=== PATIENT | female | born 1935 | race Hispanic/Latino ===

== ENCOUNTER 2018-01-29 18:52 | Inpatient (IN) | payer MEDICARE ==
[~2018-01-29] VITALS: Ht 160 cm; Wt 64.2 kg
[~2018-01-29 18:52] MED LIST: ACIPHEX; CICLOPIROX15 GM TOP; DESONIDE15 G1 TOP; DIOVAN; ERYTHROMYCIN500 MG PO; FUROSEMIDE; HYDROCODON-ACE1 EA12 PO; METOPROLOL; METOPROLOL SUCC50 MG PO; MOVIPREP POWDE1 EACH PO; MULTIVITAMINS1 EAC8 PO; NASONEX; NEOMYCIN SULFA500 MG PO; NEXIUM40 MG PO; OMEPRAZOLE; PURELAX; Z.0.RANITIDINE HCL30; [UNRECOGNIZED DRUG - OTHER]
[2018-01-29 20:34] LABS: CLARITY,URINE HAZY (CLEAR); COLOR,URINE YELLOW (YELLOW)
[2018-01-29 20:35] LABS: LEUKOCYTE ESTERASE ,URINE 1+ (NEGATIVE); NITRITE,URINE NEGATIVE (NEGATIVE); PROTEIN,URINE DIPSTICK NEGATIVE (NEGATIVE); URINE UROBILINOGEN 0.2 mg/dL (0.2 - 1)
[2018-01-29 20:36] LABS: BILIRUBIN,URINE NEGATIVE (NEGATIVE); KETONES,URINE TRACE (NEGATIVE)
[2018-01-29 21:46] LABS: EPITHELIAL CELLS,URINE MANY /LPF
[2018-01-29 21:50] LABS: BACTERIA,URINE RARE /HPF
[2018-01-29 22:04] LABS: BASOPHILS # (AUTO) 0.1 (0.0-0.1); BASOPHILS % 0.5 % (0.0-1.0); EOSINOPHILS # (AUTO) 0.1 (0.0-0.4); EOSINOPHILS % 1.1 % (0.0-6.0); HEMATOCRIT 36.6 % (34.2-44.1); LYMPHOCYTES # (AUTO) 1.4 (1.0-3.2); LYMPHOCYTES % 12.8 % (18.0-39.1); MEAN CORPUSCULAR HEMOGLOBIN 29.9 pg (28-32); MEAN CORPUSCULAR HGB CONC 32.8 g/dL (31-35); MEAN CORPUSCULAR VOLUME 91.3 fL (81-99); MONOCYTES # (AUTO) 0.9 (0.2-0.8); MONOCYTES % 8.3 % (4.4-11.3); NEUTROPHILS # (AUTO) 8.5 (2.1-6.9); NEUTROPHILS % 76.9 % (38.7-80.0); PLATELET COUNT 270 x10e3/uL (140-360); RED BLOOD COUNT 4.01 x10e6/uL (3.6-5.1); RED CELL DISTRIBUTION WIDTH 12.8 % (11.7-14.4)
[2018-01-29 22:30] LABS: ALANINE AMINOTRANSFERASE 18 IU/L (0-55); ALBUMIN 3.8 g/dL (3.5-5.0); ALBUMIN/GLOBULIN RATIO 1.1 (0.8-2.0); ALKALINE PHOSPHATASE 116 IU/L (40-150); AMYLASE 58 U/L (25-125); ANION GAP 14.9 mmol/L (8-16); BLOOD UREA NITROGEN 10 mg/dL (7-26); BUN/CREATININE RATIO 14 (6-25); CALCIUM 9.4 mg/dL (8.4-10.2); CARBON DIOXIDE 25 mmol/L (22-29); CHLORIDE 104 mmol/L (98-107); EST GLOMERULAR FILTRATION RATE > 60 ML/MIN (60-); GLUCOSE 97 mg/dL (74-118); LIPASE 40 U/L (8-78); POTASSIUM 3.9 mmol/L (3.5-5.1); SODIUM 140 mmol/L (136-145)
[2018-01-29] MEDS ORDERED: MORPHINE SULFATE 2 MG/ML SYR IV PRN (23:30)
[2018-01-29] MEDS: SODIUM CHLORIDE 0.9% 1000ML 1,000 ML IV SCH (23:31)
[2018-01-29] MEDS: LEVOFLOXACIN 500MG/D5W 100ML IV SCH (23:39)
[2018-01-29] MEDS: METRONIDAZOLE 500MG/NS 100ML IV SCH (23:42)
[2018-01-30] VITALS (8 sets, daily range): BP systolic 122–134; BP diastolic 52–63
[2018-01-30] MEDS: LEVOFLOXACIN 500MG/D5W 100ML IV SCH ×2 (00:14→02:21)
[2018-01-30] MEDS ORDERED: NORVASC5 MG PO (00:22)
[2018-01-30] MEDS: METRONIDAZOLE 500MG/NS 100ML IV SCH ×3 (05:05→18:11)
[2018-01-30 05:17] LABS: BASOPHILS # (AUTO) 0.1 (0.0-0.1); BASOPHILS % 0.6 % (0.0-1.0); EOSINOPHILS # (AUTO) 0.1 (0.0-0.4); EOSINOPHILS % 1.7 % (0.0-6.0); HEMATOCRIT 34.1 % (34.2-44.1); HEMOGLOBIN 11.1 g/dL (12.0-16.0); LYMPHOCYTES # (AUTO) 1.2 (1.0-3.2); LYMPHOCYTES % 15.5 % (18.0-39.1); MEAN CORPUSCULAR HEMOGLOBIN 29.6 pg (28-32); MEAN CORPUSCULAR HGB CONC 32.6 g/dL (31-35); MEAN CORPUSCULAR VOLUME 90.9 fL (81-99); MONOCYTES # (AUTO) 0.6 (0.2-0.8); MONOCYTES % 8.1 % (4.4-11.3); NEUTROPHILS # (AUTO) 5.7 (2.1-6.9); NEUTROPHILS % 73.7 % (38.7-80.0); PLATELET COUNT 246 x10e3/uL (140-360); RED BLOOD COUNT 3.75 x10e6/uL (3.6-5.1)
[2018-01-30 05:43] LABS: ALANINE AMINOTRANSFERASE 12 IU/L (0-55); ALBUMIN 3.3 g/dL (3.5-5.0); ALBUMIN/GLOBULIN RATIO 1.1 (0.8-2.0); ALKALINE PHOSPHATASE 99 IU/L (40-150); ANION GAP 14.4 mmol/L (8-16); BLOOD UREA NITROGEN 10 mg/dL (7-26); BUN/CREATININE RATIO 18 (6-25); CALCIUM 8.6 mg/dL (8.4-10.2); CARBON DIOXIDE 21 mmol/L (22-29); CHLORIDE 107 mmol/L (98-107); CREATININE, SERUM 0.57 mg/dL (0.57-1.11); EST GLOMERULAR FILTRATION RATE > 60 ML/MIN (60-); GLUCOSE 85 mg/dL (74-118); POTASSIUM 3.4 mmol/L (3.5-5.1); SODIUM 139 mmol/L (136-145)
[2018-01-30] MEDS: SODIUM CHLORIDE 0.9% 1000ML 1,000 ML IV SCH ×3 (07:21→23:21)
[2018-01-30] MEDS: ONDANSETRON HCL INJ 2 MG/ML VIAL IV PRN (07:58)
[2018-01-30] MEDS: PANTOPRAZOLE 40 MG 10ML VIAL IV SCH (07:58)
--- NOTE | 2018-01-30 09:23 | History and Physical ---
PRIMARY CARE PHYSICIAN: Vinod Nicolas MD CANDY PULLER: Dr. Benavides CHIEF COMPLAINT: Rectal bleeding. HISTORY OF PRESENT ILLNESS: This is an 82-year-old woman with a history of colonic polyp and hemorrhoids, who underwent hemorrhoidectomy in the past, now developing rectal bleeding, prompting a visit to the hospital. She also had associated epigastric pain. Denies any history of rectal bleeding. She is admitted for further evaluation and management. Imaging showed some thickening at the ileum. The patient also had some nausea and chills. PAST MEDICAL HISTORY: Hypertension, GERD, constipation, hemorrhoids status post hemorrhoidectomy, colonic polyp status post resection. PAST SURGICAL HISTORY: Colonic polyp with polypectomy, cataract surgery, hemorrhoidectomy. ALLERGIES: PER ELECTRONIC MEDICAL RECORD. FAMILY/SOCIAL HISTORY: The patient is . She has 4 children. No alcohol, illicits or cigarettes. MEDICATIONS: Per electronic medical record. REVIEW OF SYSTEMS: Denies any dizziness, chest pain, shortness of breath, fever, chills, sweats, back pain, headache, blurred vision. PHYSICAL EXAMINATION VITAL SIGNS: Have been reviewed. GENERAL: A tired-appearing woman resting in bed. HEENT: Anicteric. Pupils are responsive to light. No oral lesions. CARDIOVASCULAR: Normal S1 and S2. LUNGS: Moderate breath sounds. ABDOMEN: Soft, nondistended. She has tenderness in the epigastric region. Negative Matamoros sign. No tenderness in the right or left mid or lower abdomen. EXTREMITIES: She has trace edema. SKIN: Dry. PSYCHIATRIC: Flat affect. NEUROLOGIC: Alert and oriented times 3, moving all extremities. LABS: Reviewed. MEDICATIONS: Reviewed. ASSESSMENT: An 82-year-old woman. 1. Rectal bleeding. 2. Ileitis/thickening at the ileum. 3. Gastroesophageal reflux disease. 4. Hypokalemia. 5. Urinary tract infection. 6. Gallbladder dyskinesia. 7. Hypertension. 8. Normocytic anemia. PLAN 1. N.P.O. status. 2. IV fluids. 3. Continue Flagyl and Levaquin. 4. Consult continuous absorption process operator, Dr. Benavides. 5. Continue IV PPI. 6. Anemia is only mild, will follow. 7. Now developing some symptoms in the lower chest. There were some findings on the CT scan imaging of the esophagus. Defer to GI service. 8. Continue to monitor closely. 9. Use SCD and PPI for prophylaxis. Job#: [id number] MH
[2018-01-30] MEDS ORDERED: MORPHINE SULFATE INJ 4 MG/ML INJ IV PRN (12:15)
[2018-01-30] MEDS ORDERED: POLYETHYLENE GLYCOL 3350 17 GM PACK PO PRN (18:45)
[2018-01-30] MEDS ORDERED: DOCUSATE SODIUM 100 MG CAP PO PRN (18:45)
[2018-01-30] MEDS ORDERED: DICYCLOMINE HCL 10 MG CAP PO PRN (18:45)
--- NOTE | 2018-01-30 20:03 | Consultation ---
DATE OF CONSULTATION: January 30, 2018 GASTROENTEROLOGY CONSULTATION REFERRING PHYSICIAN: Dr. Lopez. REASON FOR CONSULTATION: Is abdominal pain. HISTORY OF PRESENT ILLNESS: Mrs. Krause is a very pleasant 82-year-old woman who follows with my colleague, Dr. Benavides. She comes in with abdominal pain and diarrhea. She has crampy lower abdominal pain that started one day ago. There was blood in it mixed in with stool. She was seen by her primary care physician, Dr. Nicolas, and an outpatient CAT scan showed segmental colitis. The bleeding has now stopped, but she has tenesmus. There is also abnormality of the ileum which probably correlates with her previous partial colectomy and ileocolonic anastomosis. There is apparently also on abnormality of the esophagus. Her last upper and lower endoscopy with Dr. Benavides 3 years ago. She is due for a colonoscopy routinely. PAST MEDICAL HISTORY: 1. Hypertension. 2. GERD. 3. Constipation. 4. Hemorrhoids, status post hemorrhoidectomy. 5. Significant colonic polyps requiring surgical resection and ileocolonic anastomosis. 6. Cataract surgery. MEDICATIONS AND ALLERGIES: Reviewed. Please MAR medication reconciliation form. SOCIAL HISTORY: She is . She has good family support with her 4 children. She does not use any alcohol, tobacco or illicit substance. She is quite independent. REVIEW OF SYSTEMS: Twelve system review is positive for that mentioned in history of present illness as well as lower extremity swelling above baseline. PHYSICAL EXAMINATION: GENERAL: She is pleasant, alert, oriented, in no acute distress. HEENT: Pupils are equal, round, and reactive to light. NECK: Supple. LUNGS: Clear. CARDIOVASCULAR: S1 and S2. ABDOMEN: Soft. Tender in the lower abdomen with no rebound, guarding or masses. EXTREMITIES: No cyanosis, clubbing or edema. PSYCHIATRIC: Calm and cooperative. NEUROLOGIC: Nonfocal. HEME/ONC: No bruising or adenopathy. MUSCULOSKELETAL: Reasonable muscle mass for age, no significant deformity. Electronic health record reviewed for laboratory and radiologic studies as well as history including outpatient records. ASSESSMENT AND PLAN: At the current time, she is improving. Believe she had a colitis or diverticulitis, likely infectious versus ischemic. She also had nausea and vomiting which have resolved. She continues to have some tenesmus, but no bleeding. At the current time would continue with anti-reflux measures and PPI. Continue with antibiotics for 14 days. If she improves well and is tolerating diet then she could go home and follow up with Dr. Benavides for outpatient EGD and colonoscopy. Will continue to follow with you. Thank you very much for asking me to see Mrs. Krause. I discussed plan of care with the patient and her son over the phone. Please call if any questions or concerns. Job#: [id number]
[2018-01-31] MEDS: METRONIDAZOLE 500MG/NS 100ML IV SCH ×2 (00:45→06:10)
[2018-01-31 00:57] VITALS: BP 111/57
[2018-01-31 04:40] VITALS: BP 128/58
[2018-01-31] MEDS: ONDANSETRON HCL INJ 2 MG/ML VIAL IV PRN (07:43)
[2018-01-31] MEDS: PANTOPRAZOLE 40 MG 10ML VIAL IV SCH (07:43)
[2018-01-31 07:45] VITALS: BP 128/58
[2018-01-31] MEDS ORDERED: FLAGYL500 MG PO (07:51)
[2018-01-31] MEDS ORDERED: COLACE100 M1 PO (07:51)
[2018-01-31] MEDS ORDERED: LEVAQUIN500 MG PO (07:51)
[2018-01-31] MEDS ORDERED: DICYCLOMINE HCL10 MG PO (07:51)
[2018-01-31] MEDS ORDERED: MIRALAX17 GM PO (07:51)
[2018-01-31] MEDS ORDERED: ZOFRAN ODT4 MG PO (07:51)
[2018-01-31 09:18] VITALS: BP 141/64
[2018-01-31] MEDS ORDERED: PANTOPRAZOLE SO40 MG PO (09:35)
== END 2018-01-31 10:25 | disposition home or self-care (01) | DRG 392 ==
LOC: ER 18:52 → ERHOLD 23:40 → MED/SURG2 23:54
PROVIDERS: ADMIT Internal Medicine; ATTEND Internal Medicine
DX: A09 Infectious gastroenteritis and colitis, unspecified (principal); N39.0 Urinary tract infection, site not specified; Z86.010 Personal history of colon polyps; K21.9 Gastro-esophageal reflux disease without esophagitis; E87.6 Hypokalemia; G24.9 Dystonia, unspecified; D64.9 Anemia, unspecified
CPT/HCPCS: 36415; 80053; 81001; 82150; 83690; 85025; 86850; 86900; 87040; 87086; 93005; 99284; J1956; J2405; J7030

== ENCOUNTER → 2018-03-19 | Day surgery (SDC) | payer MEDICARE, OTHER ==
[2018-03-18 13:32] LABS: BASOPHILS # (AUTO) 0.1 (0.0-0.1); BASOPHILS % 0.6 % (0.0-1.0); EOSINOPHILS # (AUTO) 0.1 (0.0-0.4); EOSINOPHILS % 0.7 % (0.0-6.0); HEMATOCRIT 38.5 % (34.2-44.1); HEMOGLOBIN 12.9 g/dL (12.0-16.0); LYMPHOCYTES # (AUTO) 1.2 (1.0-3.2); LYMPHOCYTES % 14.9 % (18.0-39.1); MEAN CORPUSCULAR HEMOGLOBIN 29.9 pg (28-32); MEAN CORPUSCULAR HGB CONC 33.5 g/dL (31-35); MEAN CORPUSCULAR VOLUME 89.1 fL (81-99); MONOCYTES # (AUTO) 0.6 (0.2-0.8); MONOCYTES % 7.5 % (4.4-11.3); NEUTROPHILS # (AUTO) 6.3 (2.1-6.9); NEUTROPHILS % 75.9 % (38.7-80.0); PLATELET COUNT 275 x10e3/uL (140-360); RED BLOOD COUNT 4.32 x10e6/uL (3.6-5.1); RED CELL DISTRIBUTION WIDTH 13.5 % (11.7-14.4)
[~2018-03-19] MED LIST changes: +COLACE100 M1 PO; +DICYCLOMINE HCL10 MG PO; +FENTANYL CITRATE/PF 100MCG/2 ML INJ ONE; +FLAGYL500 MG PO; +LEVAQUIN500 MG PO; +MIDAZOLAM HCL 2 MG/2 ML VIAL ONE; +MIRALAX17 GM PO; +NORVASC5 MG PO; +PANTOPRAZOLE SO40 MG PO; +PROPOFOL IV EMULSION 10 MG/ML 20 ML VIAL ONE; +ZOFRAN ODT4 MG PO
[2018-03-19 10:00] VITALS: BP 125/66
--- OUTSIDE RECORDS SUMMARY | 2018-03-31 10:29 | XMS REPORT | Continuity of Care Document ---
Author Author [facility] Interface Address Unknown Phone Unavailable Problems Problem Status Onset Date Classification Date Reported Comments Source Z12.31 - ENCNTR SCREEN MAMMOGRAM FOR MA Active 09/13/2015 [facility] V76.12 - SCREEN MAMMOGRA Active 06/21/2013 [facility] Final: Encounter for screening mammogram for malignant neoplasm of breast 09/25/2015 [facility] Encounter for screening mammogram for malignant neoplasm of breast 12/06/2017 [facility] Medications Medication Details Route Status Patient Instructions Ordering Provider Order Date Source Allergies, Adverse Reactions, Alerts Substance Category Reaction Severity Reaction type Status Date Reported Comments Source Immunizations Immunization Date Given Site Status Last Updated Comments Source Results Order Name Results Value Reference Range Date Interpretation Comments Source Breast Mammo Scrn REGINALD incl CAD NV Breast Mammo Scrn REGINALD incl CAD NV BILATERAL DIGITAL SCREENING MAMMOGRAM WITH CAD: 12/03/2017 CLINICAL: Routine/Screening. Current study was evaluated with a Computer Aided Detection (CAD) system. COMPARISON:Comparison is made to exams dated: 09/23/2016 mammogram, 09/22/2015 mammogram, 06/24/2014 mammogram, and 06/22/2013 mammogram - [facility]. TECHNIQUE: Mammographic views were obtained using digital acquisition. Current study was also evaluated with a Computer Aided Detection (CAD) system. FINDINGS: There are scattered fibroglandular densities in both breasts. There are benign vascular calcifications and calcifications in both breasts. No significant masses, calcifications, or other findings are seen in either breast. There has been no significant interval change. IMPRESSION: BENIGN RECOMMENDATION:There is no mammographic evidence of malignancy. A 1 year screening mammogram is recommended.(12/04/2018) This exam was interpreted at [id number] for [facility]. Professional services are provided by the [facility]. Carlita So M.D. to/penrad:12/03/2017 12:26:36 Rn Liaison(s): Amanda Pinon RT(R)(M), [facility] letter sent: BI-RADS 1/2 Mammogram BI-RADS: 2 Benign 12/03/2017 - - Read by: Carlita So MD Dictated Date/time: 12/03/17 12:26 Electronically Signed by: Carlita So MD 12/03/17 12:26 FINAL REPORT [facility] Breast Mammo Scrn REGINALD incl CAD MA Breast Mammo Scrn REGINALD incl CAD MA - BREAST MAMMO SCRN REGINALD INCL CAD MA BILATERAL DIGITAL SCREENING MAMMOGRAM WITH CAD: 09/23/2016 CLINICAL: Routine. Current study was evaluated with a Computer Aided Detection (CAD) system. Comparison is made to exams dated: 09/22/2015 mammogram, 06/24/2014 mammogram, 06/22/2013 mammogram, 06/20/2011 mammogram, 05/24/2011 mammogram and 04/23/2010 mammogram - [facility]. There are scattered fibroglandular densities in both breasts. There are benign vascular calcifications and calcifications in both breasts. No significant masses, calcifications, or other findings are seen in either breast. There has been no significant interval change. IMPRESSION: BENIGN There is no mammographic evidence of malignancy. A 1 year screening mammogram is recommended. Professional services are provided by the [facility]. Nancy Concepcion M.D. ak/penrad:09/24/2016 08:40:11 Rn Liaison: Amber Davis RT(R)(M), [facility] This exam was dictated and interpreted by [id number] for [facility]. letter sent: Normal exam Mammogram BI-RADS: 2 Benign 09/23/2016 - - Read by: Nancy Concepcion MD Dictated Date/time: 09/24/16 08:40 Electronically Signed by: Nancy Concepcion MD 09/24/16 08:40 FINAL REPORT [facility] Digital Mammo Screening Reginald MA Digital Mammo Screening Reginald MA - DIGITAL MAMMO SCREENING REGINALD MA BILATERAL DIGITAL SCREENING MAMMOGRAM WITH CAD: 09/22/2015 CLINICAL: Routine screening. Current study was evaluated with a Computer Aided Detection (CAD) system. Comparison is made to exams dated: 06/24/2014 mammogram, 06/22/2013 mammogram, 05/24/2011 mammogram and 04/23/2010 mammogram - [facility]. There are scattered fibroglandular densities in both breasts. There are benign vascular calcifications in both breasts. No significant masses, calcifications, or other findings are seen in either breast. There has been no significant interval change. IMPRESSION: BENIGN There is no mammographic evidence of malignancy. A 1 year screening mammogram is recommended. Anita yo/penrad:09/22/2015 12:00:05 Rn Liaison: Amber ISIDRO)(Sarah), [facility] This exam was dictated and interpreted by [id number] at [facility] [place]. letter sent: Bilateral Benign Mammogram BI-RADS: 2 Benign 09/22/2015 - - Read by: Anita Encarnacion MD Dictated Date/time: 09/22/15 12:00 Electronically Signed by: Anita Encarnacion MD 09/22/15 12:00 FINAL REPORT [facility] Pelvis Complete US Pelvis Complete US PELVIC SONOGRAM CLINICAL HISTORY: Postmenopausal bleeding COMPARISON IMAGING: None. TECHNIQUE: Transabdominal real time sonography was performed by an chief nuclear medicine technologist, and bilingual inside sales representative static images were submitted for review. FINDINGS: Examination limited secondary to transabdominal imaging and overlying bowel gas pattern. The patient was unable to hold significant urinary bladder volume. Uterus: Measures 3.7 x 1.8 x 2.4 cm. Endometrial stripe is 1 mm in thickness. No distinct uterine mass is identified. There is no free fluid in the pelvis. The bilateral ovaries were not visualized. No suspicious adnexal abnormality. IMPRESSION: Limited transabdominal examination secondary to limited urinary bladder volume and overlying bowel gas pattern. However no significant abnormality noted. 07/11/2014 - - Read by: Mary Diaz DO Dictated Date/time: 07/11/14 10:18 Electronically Signed by: Mary Diaz DO 07/11/14 10:23 FINAL REPORT [facility] Digital Mammo Screening Reginald MA Digital Mammo Screening Reginald MA - DIGITAL MAMMO SCREENING REGINALD MA BILATERAL DIGITAL SCREENING MAMMOGRAM WITH CAD: 06/24/2014 CLINICAL: Routine. Current study was evaluated with a Computer Aided Detection (CAD) system. Comparison is made to exams dated: 04/23/2010 mammogram, 05/24/2011 mammogram and 06/22/2013 mammogram - [facility]. There are scattered fibroglandular densities in both breasts. No significant masses, calcifications, or other findings are seen in either breast. There has been no significant interval change. IMPRESSION: NEGATIVE There is no mammographic evidence of malignancy. A screening mammogram in one year is recommended. Dr. Mary Diaz D.O. ht/penrad:06/24/2014 16:12:06 Rn Liaison: Renetta HINTON(Concepción)(M), [facility] This exam was dictated and interpreted by [id number] for [facility]. letter sent: Normal exam Mammogram BI-RADS: 1 Negative 06/24/2014 - - Read by: Mary Diaz DO Dictated Date/time: 06/24/14 16:12 Electronically Signed by: Mary Diaz DO 06/24/14 16:12 FINAL REPORT [facility] Digital Mammo Screening Reginald MA Digital Mammo Screening Reginald MA - DIGITAL MAMMO SCREENING REGINALD MA BILATERAL DIGITAL SCREENING MAMMOGRAM WITH CAD: 06/22/2013 CLINICAL: Routine. Current study was evaluated with a Computer Aided Detection (CAD) system. Comparison is made to exams dated: 06/20/2011 mammogram, 05/24/2011 mammogram, 04/23/2010 mammogram and 04/08/2009 mammogram - [facility]. There are scattered fibroglandular densities in both breasts. Left inferior asymmetry for which aspiration had been recommended (and subsequently performed at an outside facility) is no longer present. There is a benign density in both breasts. No significant masses, calcifications, or other findings are seen in either breast. There has been no significant interval change. IMPRESSION: BENIGN There is no mammographic evidence of malignancy. A screening mammogram in one year is recommended. SUMMARY: Per the technologist notes, patient had left aspiration performed at an outside facility with benign histology in 07/2011. If desired clinically, targeted left ultrasound can be performed for follow up, if not performed at the outside facility. Shayne Broderick M.D. srp/penrad:06/22/2013 12:44:09 Rn Liaison: Clarita PEÑA (R)), [facility] This exam was dictated and interpreted by [id number] for [facility]. letter sent: Normal exam Mammogram BI-RADS: 2 Benign 06/22/2013 - - Read by: Shayne Broderick Dictated Date/time: 06/22/13 12:44 Electronically Signed by: Shayne Broderick MD 06/22/13 12:44 FINAL REPORT [facility] Extremity lower art Dopp bilat US w press Extremity lower art Dopp bilat US w press STUDY: Extrmty lower-reginald art Dopplr US w press COMPARISON: None FINDINGS: Grayscale and doppler ultrasonographic evaluation of the arteries was performed. Doppler waveforms are triphasic throughout the bilateral lower extremity arterial system. Minimal plaque is identified. IMPRESSION: No evidence arterial insufficiency or occlusive disease at rest in the bilateral lower extremities. 05/06/2013 - - Read by: Pardeep Pitt Dictated Date/time: 05/06/13 16:39 Electronically Signed by: Pardeep Pitt MD 05/06/13 16:42 FINAL REPORT [facility] Extremity lower venous doppler bilat US Extremity lower venous doppler bilat US Bilateral lower extremity venous doppler CLINICAL HISTORY: Pain TECHNIQUE: The bilateral lower extremity deep venous system was evaluated with smalls scale, color Doppler, and spectral Doppler sonography. Calf augmentation was also performed. No evidence of DVT. IMPRESSION: 1. No evidence of DVT. 05/06/2013 - - Read by: Shayne Broderick Dictated Date/time: 05/06/13 15:43 Electronically Signed by: Shayne Broderick MD 05/06/13 15:45 FINAL REPORT [facility] Vital Signs Vital Sign Value Date Comments Source Encounters Location Location Details Encounter Type Encounter Number Reason For Visit Attending Provider ADM Date DC Date Status Source OD [id number] V76.12 - SCREEN MAMMOGRA PABLO DIANELL 06/22/2013 06/22/2013 Active [facility] [id number] [facility] 06/24/2014 06/25/2014 [facility] [id number] [facility] 07/11/2014 07/12/2014 [facility] [id number] [facility] 09/22/2015 09/23/2015 [facility] [id number] Vinod Nicolas 09/23/2016 09/24/2016 [facility] [id number] Vinod Nicolas 12/03/2017 12/04/2017 [facility] Procedures Procedure Code Date Perfomer Comments Source
== END | disposition home or self-care (01) ==
LOC: OR 06:49
PROVIDERS: ATTEND Internal Medicine Gastroenterology
DX: K29.70 Gastritis, unspecified, without bleeding (principal); D12.3 Benign neoplasm of transverse colon; K22.2 Esophageal obstruction; K25.9 Gastric ulcer, unspecified as acute or chronic, without hemorrhage or perforation; K44.9 Diaphragmatic hernia without obstruction or gangrene; K21.9 Gastro-esophageal reflux disease without esophagitis; Z98.0 Intestinal bypass and anastomosis status; K57.30 Diverticulosis of large intestine without perforation or abscess without bleeding; K64.8 Other hemorrhoids; E73.9 Lactose intolerance, unspecified; I10 Essential (primary) hypertension; Z88.6 Allergy status to analgesic agent; Z88.2 Allergy status to sulfonamides; Z01.810 Encounter for preprocedural cardiovascular examination; Z01.812 Encounter for preprocedural laboratory examination; Z68.24 Body mass index [BMI] 24.0-24.9, adult; Z87.440 Personal history of urinary (tract) infections
CPT/HCPCS: 36415; 43239; 45380; 85025; 88305; 88312; 93005; J2250; 45378; 45385